=== PATIENT | male | born 1985 | race Caucasian/White ===

== ENCOUNTER 2018-09-23 17:14 | Emergency (ER) | payer SELFPAY ==
[~2018-09-23] VITALS: Ht 170.2 cm; Wt 100.7 kg
[2018-09-23 17:27] VITALS: Ht 170.2 cm; Wt 100.7 kg
[2018-09-23 18:17] LABS: BASOPHIL % 0.3 % (0-2); PLATELET COUNT 312 x10^3mcL (130-400); RED CELL DISTRIBUTION WIDTH 14.1 % (11.5-14.5)
[2018-09-23 18:24] LABS: CALCIUM 9.4 mg/dL (8.5-10.1); CARBON DIOXIDE 25.7 mmol/L (21-32); CHLORIDE SERUM 101 mmol/L (98-107); CREATININE SERUM 0.9 mg/dL (0.7-1.3); GFR1 > 60 mL/min; GLUCOSE SERUM 93 mg/dL (74-106); SODIUM SERUM 136 mmol/L (136-145)
[2018-09-23 18:29] LABS: ALBUMIN 3.7 g/dL (3.4-5.0); ALKALINE PHOSPHATASE 67 U/L (46-116); ALT/SGPT 107 U/L (16-63); AST/SGOT 40 U/L (15-37); BILIRUBIN TOTAL 0.52 mg/dL (0.20-1.00); TOTAL PROTEIN, SERUM 8.1 g/dL (6.4-8.2)
[2018-09-23 19:09] VITALS: BP 139/81
== END 2018-09-23 19:09 | disposition home or self-care (01) ==
LOC: ED 17:14
PROVIDERS: Specialist
DX: K29.20 Alcoholic gastritis without bleeding (principal); F14.10 Cocaine abuse, uncomplicated
CPT/HCPCS: J2405; J3490; J7030; Q0092